=== PATIENT | female | born 1985 | race Caucasian/White ===

== ENCOUNTER → 2017-12-29 | Outpatient (CLI) | payer OTHER ==
[~2017-12-29] MED LIST: Cleocin HCl150 MG PO
[2017-12-31 14:20] LABS: Codeine Not Detected (NOTDET); Hydrocodone Not Detected (NOTDET); Hydromorphone Not Detected (NOTDET); Morphine Not Detected (NOTDET); Norhydrocodone Not Detected (NOTDET); Noroxycodone Not Detected (NOTDET)
== END ==
LOC: LAB 09:45
PROVIDERS: Family Medicine
DX: F11.20 Opioid dependence, uncomplicated (principal)
CPT/HCPCS: G0480

== ENCOUNTER → 2019-03-09 | Outpatient (CLI) | payer OTHER ==
[2019-03-09 15:32] LABS: BASOPHILS ABSOLUTE AUTO 0.07 K/mm3 (0.00-0.23); BASOPHILS PERCENT AUTO 1 % (0-2); EOSINOPHILS ABSOLUTE AUTO 0.22 K/mm3 (0.00-0.68); EOSINOPHILS PERCENT AUTO 2 % (0-6); Hematocrit 41.5 % (33.0-51.0); Hemoglobin 14.1 g/dL (11.5-16.0); IMMATURE GRAN ABSOLUTE AUTO 0.02 K/mm3 (0.00-0.10); IMMATURE GRAN PERCENT AUTO 0 % (0-1); LYMPHOCYTES ABSOLUTE AUTO 2.34 K/mm3 (0.84-5.20); LYMPHOCYTES PERCENT AUTO 23 % (21-46); MONOCYTES ABSOLUTE AUTO 0.76 K/mm3 (0.16-1.47); MONOCYTES PERCENT AUTO 7 % (4-13); Mean Corpuscular HGB 31.2 pg (26.0-34.0); Mean Corpuscular Volume 92 fL (80-100); Mean Platelet Volume 9.4 fL (9.1-12.4); NEUTROPHILS ABSOLUTE AUTO 6.82 K/mm3 (1.96-9.15); NEUTROPHILS PERCENT AUTO 67 % (41-73); Platelet Count 327 K/mm3 (150-400); RDW Coefficient Variation 12.4 % (11.7-14.2); RDW Standard Deviation 41.8 fL (35.1-46.3); Red Blood Cell Count 4.52 M/mm3 (3.80-5.20); White Blood Cell Count 10.23 K/mm3 (4.00-11.30)
== END | disposition home or self-care (01) ==
LOC: LAB SHORT 15:25 → LAB EV 15:25
PROVIDERS: Family Medicine
DX: R10.9 Unspecified abdominal pain (principal)
CPT/HCPCS: 85025

== ENCOUNTER → 2019-10-26 | Outpatient (CLI) | payer OTHER ==
[2019-10-27 07:08] LABS: HIV SCREEN 4TH GENERATION WRFX Non Reactive (Non Reactive)
[2019-10-27 09:08] LABS: HBSAG SCREEN Negative (Negative); HEP A AB, IGM Negative (Negative); HEP B CORE AB, TOT Negative (Negative); HEP C VIRUS AB 0.1 (0.0-0.9)
[2019-10-28 19:05] LABS: CHLAMYDIA TRACHOMATIS, NAA Negative (Negative); NEISSERIA GONORRHOEAE, NAA Negative (Negative)
== END | disposition home or self-care (01) ==
LOC: LAB SHORT 10:34 → LAB UCHC 10:34 → LAB 10:34
PROVIDERS: Obstetrics & Gynecology
DX: Z20.2 Contact with and (suspected) exposure to infections with a predominantly sexual mode of transmission (principal)
CPT/HCPCS: 86592; 86695; 86696; 86704; 86708; 86803; 87340; 87389; 87491; 87591

== ENCOUNTER 2023-08-05 17:05 | Emergency (ER) | payer OTHER ==
[~2023-08-05] VITALS: Ht 167.6 cm; Wt 82.5 kg
[2023-08-05 17:37] VITALS: BP 131/93
[2023-08-05] MEDS ORDERED: METH40 PO (17:39)
[2023-08-05 18:01] LABS: BASOPHILS ABSOLUTE AUTO 0.09 K/mm3 (0.00-0.23); BASOPHILS PERCENT AUTO 1 % (0-2); EOSINOPHILS ABSOLUTE AUTO 0.21 K/mm3 (0.00-0.68); EOSINOPHILS PERCENT AUTO 2 % (0-6); Hematocrit 43.2 % (33.0-51.0); Hemoglobin 14.2 g/dL (11.5-16.0); IMMATURE GRAN ABSOLUTE AUTO 0.06 K/mm3 (0.00-0.10); IMMATURE GRAN PERCENT AUTO 1 % (0-1); LYMPHOCYTES ABSOLUTE AUTO 2.58 K/mm3 (0.84-5.20); LYMPHOCYTES PERCENT AUTO 20 % (21-46); MONOCYTES ABSOLUTE AUTO 0.99 K/mm3 (0.16-1.47); MONOCYTES PERCENT AUTO 8 % (4-13); Mean Corpuscular HGB 30.4 pg (26.0-34.0); Mean Corpuscular HGB Conc 32.9 g/dL (31.5-36.5); Mean Corpuscular Volume 93 fL (80-100); Mean Platelet Volume 9.1 fL (9.1-12.4); NEUTROPHILS ABSOLUTE AUTO 8.79 K/mm3 (1.96-9.15); NEUTROPHILS PERCENT AUTO 69 % (41-73); Platelet Count 360 K/mm3 (150-400); RDW Coefficient Variation 12.8 % (11.7-14.2); RDW Standard Deviation 43.2 fL (35.1-46.3); Red Blood Cell Count 4.67 M/mm3 (3.80-5.20); White Blood Cell Count 12.72 K/mm3 (4.00-11.30)
[2023-08-05 18:15] LABS: Source, Urine Clean Catch
[2023-08-05 18:22] LABS: Appearance, Urine Cloudy (Clear); Bilirubin, Urine Neg (Neg); Blood, Urine 5+ (Neg); Color, Urine Yellow (P-Yellow); Glucose Qualitative, Urine Neg (Neg); Ketones, Urine Neg (Neg); Leukocyte Esterase, Urine 2+ (Neg); Nitrite, Urine Neg (Neg); Protein, Urine 1+ (Neg); Urobilinogen, Urine 1+ (Normal)
[2023-08-05 18:31] LABS: Bacteria Many /hpf; Squamous Epithelial Cells Mod /hpf (Few)
[2023-08-05 19:11] LABS: Albumin, Blood 3.4 g/dL (3.4-5.0); Bilirubin, Total 0.1 mg/dL (0.1-1.0); Bun/Creatinine Ratio 11.7 (12.0-20.0); Calcium, Blood 8.3 mg/dL (8.5-10.1); Creatinine, Blood 0.77 mg/dL (0.40-1.00); Globulin, Blood 3.3 g/dL (2.2-4.0); Total Protein, Blood 6.7 g/dL (6.4-8.2)
[2023-08-06 14:22] LABS: Potassium, Blood 3.8 mmol/L (3.5-5.5)
[2023-08-07 04:10] LABS: HBSAG SCREEN Negative (Negative); HCV AB Non Reactive (Non Reactive); HEP A AB, IGM Negative (Negative); HEP B CORE AB, IGM Negative (Negative)
== END 2023-08-05 20:28 | disposition left against medical advice (07) ==
LOC: ER 17:05
PROVIDERS: Physician Assistant
DX: R10.11 Right upper quadrant pain (principal); Z53.29 Procedure and treatment not carried out because of patient's decision for other reasons
CPT/HCPCS: 80053; 80074; 81001; 81025; 83690; 85025; 87077; 87086; 87186; 99281

== ENCOUNTER 2024-09-04 04:08 | Emergency (ER) | payer OTHER ==
[~2024-09-04] VITALS: Ht 167.6 cm; Wt 92.5 kg
[~2024-09-04 04:08] MED LIST changes: +AMOCLA875 PO; +METH40 PO; +Norco 5-325 Ta1 EACH PO
[2024-09-04 04:24] VITALS: BP 164/99
[2024-09-04] MEDS ORDERED: Ketorolac Tromethamine 15mg Vial IM ONE (05:20)
[2024-09-04] MEDS ORDERED: Acetaminophen 500 MG Tab PO ONE (05:20)
[2024-09-04] MEDS ORDERED: Amoxicillin/Clavulanate K 875 MG Tab PO ONE (05:20)
[2024-09-04] MEDS ORDERED: IBUP600 PO (05:24)
[2024-09-04] MEDS ORDERED: ACET500 PO (05:24)
[2024-09-04] MEDS ORDERED: AMOCLA875 PO (05:24)
== END 2024-09-04 05:55 | disposition home or self-care (01) ==
LOC: ER 04:08
DX: H66.92 Otitis media, unspecified, left ear (principal); Z88.2 Allergy status to sulfonamides; Z79.899 Other long term (current) drug therapy
CPT/HCPCS: 96372; 99282-25; A9270; J1885

== ENCOUNTER 2025-06-14 02:46 | Inpatient (IN) | payer OTHER ==
[2025-06-14] VITALS (74 sets, daily range): BP systolic 92–191; BP diastolic 52–108
[~2025-06-14] VITALS: Ht 162.6 cm; Wt 81.7 kg
[~2025-06-14 02:46] MED LIST changes: +ACET500 PO; +IBUP600 PO
[2025-06-14] MEDS ORDERED: Ondansetron HCl 2 MG / ML 2ML Vial IV PRN ×2 (03:10→06:45)
[2025-06-14] MEDS ORDERED: Oxytocin 10 Unit / ML Vial IM PRN (03:10)
[2025-06-14] MEDS ORDERED: Carboprost Tromethamine 250 MCG/ML 1ML Amp IM PRN ×2 (03:10→06:45)
[2025-06-14] MEDS ORDERED: Methylergonovine Maleate 0.2MG / ML 1ML Amp IM PRN ×2 (03:10→06:50)
[2025-06-14] MEDS ORDERED: Penicillin G Potassium 5,000,000 UNITS in NS 250 ML IV ONE (03:10)
[2025-06-14] MEDS ORDERED: OXYTOCIN/RINGER'S LACTATE 500 ML IV PRN (03:10)
[2025-06-14] MEDS ORDERED: Tranexamic Acid 100 ML IV PRN (03:10)
[2025-06-14] MEDS ORDERED: OXYTOCIN/RINGER'S LACTATE 500 ML IV ONE (03:12)
[2025-06-14] MEDS ORDERED: Magnesium Sul 4 GM/Water100 ML 100 ML IV ONE ×2 (03:25→03:30)
[2025-06-14] MEDS ORDERED: Magnesium Sulf 2 GM/Water 50ML 50 ML IV SCH (03:25)
[2025-06-14] MEDS ORDERED: HydrALAZINE HCl 20 MG / ML 1ML Vial IV ONE (03:25)
[2025-06-14] MEDS ORDERED: HydrALAZINE HCl 20 MG / ML 1ML Vial IV SCH (03:25)
[2025-06-14] MEDS ORDERED: HydrALAZINE HCl 20 MG / ML 1ML Vial ONE (03:29)
[2025-06-14] MEDS ORDERED: ePHEDrine Sulfate 50 MG/ML 1ML Injection XX PRN (03:50)
[2025-06-14] MEDS ORDERED: FentaNYL 2mcg/ml-Bup 0.1% Epd 250 ML EPI PRN (03:50)
[2025-06-14 03:55] LABS: BASOPHILS ABSOLUTE AUTO 0.09 K/mm3 (0.00-0.23); BASOPHILS PERCENT AUTO 1 % (0-2); EOSINOPHILS ABSOLUTE AUTO 0.00 K/mm3 (0.00-0.68); EOSINOPHILS PERCENT AUTO 0 % (0-6); Hematocrit 41.4 % (33.0-51.0); Hemoglobin 13.3 g/dL (11.5-16.0); IMMATURE GRAN ABSOLUTE AUTO 0.34 K/mm3 (0.00-0.10); IMMATURE GRAN PERCENT AUTO 2 % (0-1); LYMPHOCYTES ABSOLUTE AUTO 1.25 K/mm3 (0.84-5.20); LYMPHOCYTES PERCENT AUTO 7 % (21-46); MONOCYTES ABSOLUTE AUTO 0.81 K/mm3 (0.16-1.47); MONOCYTES PERCENT AUTO 5 % (4-13); Mean Corpuscular HGB Conc 32.1 g/dL (31.5-36.5); Mean Corpuscular Volume 84 fL (80-100); NEUTROPHILS ABSOLUTE AUTO 15.07 K/mm3 (1.96-9.15); NEUTROPHILS PERCENT AUTO 86 % (41-73); NRBC ABSOLUTE 0.00 K/mm3 (0.00-0.02); NRBC Auto 0.0 /100 WBC (0.0-0.2); Platelet Count 324 K/mm3 (150-400); RDW Coefficient Variation 14.3 % (11.7-14.2); RDW Standard Deviation 43.2 fL (35.1-46.3)
[2025-06-14] MEDS ORDERED: FentaNYL Citrate 50 MCG/ML 2 ML Injection ONE ×2 (03:58→04:38)
[2025-06-14 04:30] LABS: Alanine Aminotransfer (ALT/SGP 12.0 U/L (12-78); Albumin, Blood 2.1 g/dL (3.4-5.0); Albumin/Globulin Ratio 0.6 (0.8-1.8); Anion Gap 10.0 mmol/L (3-11); Aspartate Aminotrans (AST/SGOT 19.0 U/L (12-37); Bilirubin, Total 0.4 mg/dL (0.1-1.0); Blood Urea Nitrogen 5.0 mg/dL (8-24); CO2, Blood 21.0 mmol/L (21-32); Calcium, Blood 8.1 mg/dL (8.5-10.1); Chloride, Blood 113.0 mmol/L (98-108); Creatinine, Blood 0.7 mg/dL (0.40-1.00); Globulin, Blood 3.8 g/dL (2.2-4.0); Glucose, Blood 86.0 mg/dL (70-99); Lactate Dehydrogenase (Ld),Bld 203.0 U/L (100-240); Potassium, Blood 4.0 mmol/L (3.5-5.5); Sodium, Blood 140.0 mmol/L (136-145); Total Protein, Blood 5.9 g/dL (6.4-8.2)
[2025-06-14 04:38] LABS: Fibrinogen 456.0 mg/dL (170-430); Prothrombin Time Results 9.8 Sec (9.7-11.5)
[2025-06-14] MEDS ORDERED: FentaNYL Citrate 50 MCG/ML 2 ML Injection IV PRN (05:05)
[2025-06-14] MEDS ORDERED: FentaNYL Citrate 50 MCG/ML 2 ML Injection IV ONE (05:05)
[2025-06-14 05:30] LABS: U Amphetamine Screen DETECTED; U Cannabinoids Screen DETECTED; U Methadone Screen DETECTED; U Methamphetamine Screen DETECTED
[2025-06-14] MEDS ORDERED: CeFAZolin Sodium 2,000 MG in NS 100 ML IV SCH (05:30)
[2025-06-14 05:31] LABS: U Barbituate Screen Not Detected; U Benzodiazapine Screen Not Detected; U Buprenorphine Screen Not Detected; U Cocaine Screen Not Detected; U Opiates Screen Not Detected; U Oxycodone Screen Not Detected; U Phencyclidine Screen Not Detected
[2025-06-14 05:42] LABS: Creatinine, Urine Random 283.0 mg/dL (27.00-270.00); Protein, Urine Random 54.4 mg/dL (0.0-11.9); Protein/Creat Ratio, Ur Random 0.2
[2025-06-14] MEDS ORDERED: Midazolam HCl 1MG / ML 2ML Vial ONE (05:50)
[2025-06-14] MEDS ORDERED: Oxytocin 10 Unit / ML Vial ONE (05:51)
[2025-06-14] MEDS ORDERED: Dexamethasone Sod Phos 10 MG/ML 1ML VIAL ONE (05:51)
[2025-06-14] MEDS ORDERED: Ketorolac Tromethamine 30mg Vial ONE ×2 (05:51→06:44)
[2025-06-14] MEDS ORDERED: Phenylephrine HCl 100 MCG/ML-NS 10MLSYR (1MG/10ML) ONE (05:51)
[2025-06-14] MEDS ORDERED: Ondansetron HCl 2 MG / ML 2ML Vial ONE (05:51)
[2025-06-14] MEDS ORDERED: CeFAZolin Sodium 1000 mg Vial ONE (05:51)
[2025-06-14] MEDS ORDERED: Lidocaine HCl 2% 10 ML SDA ONE (05:51)
[2025-06-14] MEDS ORDERED: ePHEDrine Sulfate 50 MG/ML 1ML Injection ONE (05:55)
[2025-06-14 05:58] LABS: PCO2 Cord - Arterial 85.9 mmHg (40-50); PO2 Cord - Arterial < 14.0 mmHg (16-20); pH Cord - Arterial 7.01 (7.28-7.35)
[2025-06-14 05:59] LABS: PCO2 Cord - Venous 72.2 mmHg (40-50); PO2 Cord - Venous < 14.0 mmHg (28-32); pH Umbilical Cord - Venous 7.08 (7.26-7.35)
[2025-06-14] MEDS ORDERED: OXYTOCIN/RINGER'S LACTATE 500 ML IV SCH (06:45)
[2025-06-14] MEDS ORDERED: Magnesium Hydroxide Conc 10 ML UDC PO PRN (06:50)
[2025-06-14] MEDS ORDERED: Ketorolac Tromethamine 30mg Vial IV SCH (07:00)
--- NOTE | 2025-06-14 07:53 | NUR ---
AT 0730 1 LITER OF O2 APPLIED TO PT IN PACU, PT SNORING AND HAD PROPOFOL SO SHE IS NOT FULLY AWAKE YET. O2 LEVELS FLUCTUATING BETWEEN 92-97%. AFTER 1 LITER OF O2 APPLIED VIA NASAL CANNULA PT HAS BEEN SATING AT 100%.
[2025-06-14] MEDS ORDERED: Penicillin G Potassium 2,500,000 UNITS in Dextrose 5% 100 ML IV SCH (08:00)
[2025-06-14] MEDS ORDERED: Ampicillin Sod 2,000 MG in NS 100 ML IV SCH (08:00)
[2025-06-14] MEDS ORDERED: Prenatal Vit/FE Fumarate/FA 1 Tab PO SCH (09:00)
[2025-06-14] MEDS ORDERED: HYDROmorphone HCl/Pf 1MG SYR IV PRN (10:05)
[2025-06-14] MEDS ORDERED: HYDROmorphone 1 MG/ML 30 ML Bag IV PRN (10:55)
[2025-06-14] MEDS ORDERED: NS IV SCH (11:00)
[2025-06-14] MEDS ORDERED: GENTAMICIN SULFATE IV SCH (11:00)
--- NOTE | 2025-06-14 13:03 | NUR ---
Assumed care from Isidro Collazo RN for lunch. Pt sleeping soundly.
--- NOTE | 2025-06-14 14:18 | NUR ---
I SPOKE WITH ROCIO TODAY TO GET A BETTER UNDERSTANDING FOR WHAT DRUGS SHE USED IN THIS . I ALSO SPOKE WITH DOMINIK WOO'S SIGNIFICANT OTHER AND SUPPORT PERSON. HE IS THE FATHER OF THE BABY. THEY BOTH ADMITTED TO USING FENTANTYL DAILY. STARLA REPORTED THAT THEY BOTH WANTED TO GET CLEAN AFTER FINDING OUT THEY WERE AT 22 WEEKS. STARLA REPORTS HE WENT TO A CLINIC IN [place] AND THAT SHE WENT TO [facility]. STARLA REPORTS THAT HE HAD TREATMENT AND HAS BEEN CLEAN FOR A "A FEW WEEKS" BUT ROCIO HASN'T BEEN ABLE TO STAY CLEAN AND FOLLOW THROUGH WITH HER TREATMENT PLAN. STARLA REPORTED THAT THEY ALSO HAD A LIQUID BOTTLE OF MORPHINE QUOTE ON QUOTE- "IT WAS A LIQUID BOTTLE OF MORPHINE LIKE A PATIENT GETS WHILE ON HOSPICE AND WHEN ROCIO WOULD TRY TO GET CLEAN AND START WITHDRAWING SHE WOULD USE AN EYE DROPPER AND DROP SOME INTO HER MOUTH TO HELP WITH THE WITHDRAWL SYMPTOMS". THEY ALSO REPORTED THAT ROCIO "WASN'T TAKING METHADONE REGULARLY, SHE HAD GOT A PRESCRIPTION WITH A FEW DOSES TO TAKE HOME AND SHE WOULD USE IT, THEN GO INTO WITHDRAWLS AND GO BACK TO THE [facility]". "LAST TIME SHE USED METHADONE WAS ON 06/12/25 BUT IT WAS NOT SOMETHING SHE REGULARLY TOOK THROUGHOUT THE ".
--- NOTE | 2025-06-14 15:58 | NUR ---
OVERALL, PT HAS BEEN SLEEPING MOST OF THE DAY AND VERY DIFFICULT TO TALK TO. PT DOES NOT ANSWER QUESTIONS CLEARLY SO I HAVE BEEN MOSTLY ASKING YES AND NO QUESTIONS AND SPEAKING TO STARLA- HER SUPPORT PERSON/FOB. PT HAS BEEN IN A LOT OF PAIN SO MANAGING THAT HAS BEEN HER BIGGEST PROBLEM TODAY. SHE HAS NOT BEEN UP OR BEEN TO THE NURSERY. PT ASKED ME ONCE THIS MORNING HOW THE BABY WAS DOING BUT OTHER THAN THAT SHE HASN'T ASKED ANY QUESTIONS ABOUT HER BABY. STARLA HAS BEEN DOWN TO THE NURSERY MULTIPLE TIMES TO SEE THE BABY AND HE HAS ASKED HOW SHE WAS DOING TWO DIFFERENT TIMES TO ME. STARLA SEEMS TO BE EAGER TO GET CLEAN AND REPORTS HE HAS BEEN CLEAN FOR 5 MONTHS.
[2025-06-14] MEDS ORDERED: Rho(D) Immune Globulin 300 MCG / SYR IV SCH (18:45)
[2025-06-14] MEDS ORDERED: Ketorolac Tromethamine 30mg Vial IV PRN (20:25)
[2025-06-15] VITALS (35 sets, daily range): BP systolic 108–183; BP diastolic 54–88
[2025-06-15] MEDS ORDERED: Ketorolac Tromethamine 30mg Vial IV SCH
--- NOTE | 2025-06-15 03:42 | NUR ---
PATIENT ASLEEP AND SNORING THIS SHIFT. DIFFICULT TO AROUSE AT TIMES. FOLLOWS DIRECTIONS BUT FALLS BACK ASLEEP WHILE COMPLETING THEM. PATIENT HAS BEEN AIDED IN REPOSITIONING THROUGHOUT SHIFT BY THIS RN AND SUPPORT PERSON. SOFT SPOKEN AND MUMBLING/GARBLED SPEECH WHEN SHE DOES VERBALLY RESPOND. MEDICATED PER EMAR. ADEQUATE URINE OUTPUT. BLEEDING SCANT. NEITHER PARENT HAS VISITED NURSERY OR ASKED ABOUT BABY TO THIS RN'S KNOWLEDGE.
[2025-06-15 06:40] LABS: BASOPHILS ABSOLUTE AUTO 0.06 K/mm3 (0.00-0.23); BASOPHILS PERCENT AUTO 0 % (0-2); EOSINOPHILS ABSOLUTE AUTO 0.01 K/mm3 (0.00-0.68); EOSINOPHILS PERCENT AUTO 0 % (0-6); Hematocrit 29.5 % (33.0-51.0); Hemoglobin 9.5 g/dL (11.5-16.0); IMMATURE GRAN ABSOLUTE AUTO 0.22 K/mm3 (0.00-0.10); IMMATURE GRAN PERCENT AUTO 1 % (0-1); LYMPHOCYTES ABSOLUTE AUTO 2.01 K/mm3 (0.84-5.20); LYMPHOCYTES PERCENT AUTO 8 % (21-46); MONOCYTES ABSOLUTE AUTO 2.06 K/mm3 (0.16-1.47); MONOCYTES PERCENT AUTO 9 % (4-13); Mean Corpuscular HGB Conc 32.2 g/dL (31.5-36.5); Mean Corpuscular Volume 84 fL (80-100); NEUTROPHILS ABSOLUTE AUTO 19.53 K/mm3 (1.96-9.15); NEUTROPHILS PERCENT AUTO 82 % (41-73); NRBC ABSOLUTE 0.00 K/mm3 (0.00-0.02); NRBC Auto 0.0 /100 WBC (0.0-0.2); Platelet Count 303 K/mm3 (150-400); RDW Coefficient Variation 14.3 % (11.7-14.2); RDW Standard Deviation 43.4 fL (35.1-46.3)
[2025-06-15 15:14] LABS: HEPATITIS B SURFACE ANTIBODY 206.09 IU/L
[2025-06-15 16:28] LABS: HEPATITIS C AB CIA INTERP Negative (Negative); HEPATITIS C ANTIBODY CIA INDEX 0.04 IV
[2025-06-15 16:51] LABS: HIV 1,2 COMBO ANTIGEN/ANTIBODY Negative (Negative)
--- NOTE | 2025-06-15 20:57 | NUR ---
PATIENT DECLINES AMBULATING TO BATHROOM, SCDS, AND REPOSITIONING EXTREMETIES TO FACILITATE EDEMA ELIMINATION. PATIENT WEARING ABDOMINAL BINDER
[2025-06-16 00:58] VITALS: BP 136/81
[2025-06-16 08:37] VITALS: BP 131/73
--- NOTE | 2025-06-16 09:16 | NUR ---
DR MATHEW AT BEDSIDE TO ASSESS PATIENT. PT SLEEPING SOUNDLY AND VERY DIFFICULT TO WAKE UP. FOB STARLA AT BEDSDIE AND WOKE UP WHEN WE CAME INTO THE ROOM. STARLA SAT UP AND STATES SHE HAS BEEN SLEEPING A LOT BUT IS GETTING UP TO GO TO BATHROOM. AFTER A FEW MINUTES OF TRYING TO GET PATIENT TO WAKE UP AND TALK WITH US- WE TURNED ON THE LIGHTS WHICH DID MAKE HER OPEN HER EYES. PT STATES SHE PEED THE BED AND ALL GOWN AND LINENS WET AT THIS TIME. DR ABRAMS ASSESSED INCISION- WE TOOK OFF DRESSING. AT THE CENTER OF THE INCISION THERE IS A 3 CM AREA THAT IS STARTED TO OPEN. ALL STERI STRIPS WERE WET SO TOOK OFF AND REPLACED. SHE IS GOING TO DISCUSS WITH DR JONES BUT NO NEW ORDERS FOR NOW. IV DC ALL ANTIBIOTICS HAVE BEEN DISCONTINUTED. PT NOW READY TO GET UP TO VOID. IN BATHROOM TOILET IS FULL OF PEE, DIARRHEA AND HER PAD INSIDE THE TOILET. PT UP TO VOID, SHOWERED INDEPENDANLTY AND LINENS WHERE CHANGED. PT SITTING UP TO EAT BREAKFAST AND ED FROM [facility] NOW HERE FOR ASSESSMENT. PT HAS NOT ASKED ABOUT OR SEEN AND HAS NOT COMPLETED ANY CERTIFICATE OR PATERNITY PAPERWORK.
[2025-06-16 10:41] VITALS: BP 161/85
[2025-06-16 11:09] VITALS: BP 157/84
--- NOTE | 2025-06-16 11:51 | NUR ---
SOCIAL SERVICE SS AT BEDSIDE D/T EPDS SCREEN OF 11. PT CONTINUES TO SLEEP BUT DOES RESPOND BACK TO QUESTIONS WITH HER EYES SHUT. PT DECLINES TO TALK TO JAY AT THIS TIME.
[2025-06-16] MEDS ORDERED: OXYC5 (12:16)
[2025-06-16 12:24] VITALS: BP 140/63
--- NOTE | 2025-06-16 12:38 | NUR ---
QUINCY CALLED AND UDPATED ON BP AND STILL JUST SLEEPING. SHE HAS CONSULTED WITH DR EMMANUEL AND IF PATIENT IS GOING TO GO TO [facility] AT 1400 SHE MAY DISCHARGE HOME. RX HAVE BEEN SENT TO [facility]. IF PT WANTS TO STAY LONGER SHE MAY ALSO DO THAT. PLAN TO FOLLOW UP FRIDAY AT [facility] AT 10 AM AND THEN FRIDAY AT [address] YOUSIF TO CHECK INCISION AT OFFICE.
--- NOTE | 2025-06-16 13:41 | NUR ---
DISCHARGE RAMILA FROM [facility] IS HERE TO GIVE PATIENT A RIDE TO [facility] FOR A 1400 APPOINTMENT. FOB STARLA HERE TO FINISH PATERNITY PAPERWORK. MOTHER AMBULATED TO NURSERY FOR THE FIRST TIME BEFORE DISCHARGE TO SEE BABY. PAIN MEDS GIVEN BEFORE DISCHARGE AND STARLA WILL GO TO [facility] FOR RX. PT AND FOB VERBALIZES UNDERSTANDING OF DC INSTRUCTIONS AND FOLLOW UP APPOINTMENTS. RAMILA FROM [facility] STATES SHE CAN GET PT HERE AT 0900 FOR APPOINTMENT. PT HAS NO QUESTIONS OR CONCERNS. PIH/HIGH BP SYMPTOMS DISCUSSED AND INSTRUCTED TO GO TO ER WITH ANY CHANGES.
== END 2025-06-16 13:30 | disposition home or self-care (01) | DRG 787 ==
LOC: OBS 02:46 → BC 02:47 → OBS 03:08 → BC 03:10
PROVIDERS: Obstetrics & Gynecology; ADMIT Family Medicine
PROC: 3E0334Z Introduction of Serum, Toxoid and Vaccine into Peripheral Vein, Percutaneous Approach (ICD-10-PCS; 2025-06-14)
PROC: 3E03329 Introduction of Other Anti-infective into Peripheral Vein, Percutaneous Approach (ICD-10-PCS; 2025-06-14)
PROC: 10D00Z1 Extraction of Products of Conception, Low, Open Approach (ICD-10-PCS; principal; 2025-06-14 07:30)
DX: O14.14 Severe pre-eclampsia complicating childbirth (principal); O98.32 Other infections with a predominantly sexual mode of transmission complicating childbirth; O42.02 Full-term premature rupture of membranes, onset of labor within 24 hours of rupture; O45.93 Premature separation of placenta, unspecified, third trimester; O99.324 Drug use complicating childbirth; Z3A.39 39 weeks gestation of pregnancy; Z37.0 Single live birth; Z90.89 Acquired absence of other organs; F12.90 Cannabis use, unspecified, uncomplicated; Z88.2 Allergy status to sulfonamides; F11.90 Opioid use, unspecified, uncomplicated; F15.90 Other stimulant use, unspecified, uncomplicated; O99.334 Smoking (tobacco) complicating childbirth; F17.210 Nicotine dependence, cigarettes, uncomplicated; A60.00 Herpesviral infection of urogenital system, unspecified; O99.214 Obesity complicating childbirth; O76 Abnormality in fetal heart rate and rhythm complicating labor and delivery
CPT/HCPCS: 36415; 51702; 59025; 74018; 80053; 82570; 82803; 83615; 84156; 85025; 85384; 85460; 85610; 85730; 86592; 86762; 86803; 86850; 86900; 86901; 86923; 87081; 87150; 87340; 87389; 88307; 99214; A9270; J0290; J0360; J0690; J1100; J1171; J1580; J1885; J2003; J2250; J2371; J2405; J2540; J2590; J2704; J2791; J3010; J3475; J7050; J7120; T2101